=== PATIENT | male | born 1950 | race Caucasian/White ===

== ENCOUNTER 2018-05-17 08:14 | Day surgery (SDC) | payer MEDICARE ==
[~2018-05-17] VITALS: Ht 175.3 cm; Wt 106.1 kg
--- NOTE | 2018-05-17 08:48 | NUR ---
History, Chart, Medications and Allergies reviewed before start of procedure. Patient confirms NPO status and agrees with scheduled surgery. Lungs clear T/O to Auscultation. Pre-Op teaching done. Pt verbalizes understanding. Patient states colon prep results clear. Patient States Post-Procedure ride home has been arranged.
--- NOTE | 2018-05-17 09:40 | NUR ---
05/17/18 0940 America Johnson History, Chart, Medications and Allergies reviewed before start of procedure.PATIENT DETERMINED TO BE ASA APPROPRIATE FOR PROPOFOL SEDATION PRIOR TO START OF PROCEDURE BY .MONITOR INTACT WITH CONTINUOUS PULSE OXIMETRY AND INTERMITTENT BP.3-LEAD EKG REVIEWED WITH PHYSICIAN PRIOR TO START OF PROCEDURE.O2 VIA N/C INTACT THROUGHOUT SEDATION/PROCEDURE.
--- NOTE | 2018-05-17 10:05 | NUR ---
RECEIVED REPORT FROM ENDO RN (GEO). VSS. PT AROUSING. MD SPEAKING TO PT.
--- NOTE | 2018-05-17 10:25 | NUR ---
YANELY HARRISON WILL ASSUME CARE OF PT. Discharge instructions reviewed with patient. Patient verbalizes understanding. Copy given to patient to take home.
--- NOTE | 2018-05-17 10:33 | NUR ---
"DAY SURGERY RN | DISCHARGE Report from Valentina [place]. VSS. A/O. No issues in stepdown. Discharge instructions given by Valentina [place]. Patient is ride home. Patient taken via wheelchair to front entrance by volunteer."
== END 2018-05-17 22:37 | disposition home or self-care (01) ==
LOC: ORSCMMR 08:14
PROVIDERS: Internal Medicine Gastroenterology
PROC: 0DBN8ZX Excision of Sigmoid Colon, Via Natural or Artificial Opening Endoscopic, Diagnostic (ICD-10-PCS; principal; 2018-05-17 09:30)
PROC: 0DBH8ZX Excision of Cecum, Via Natural or Artificial Opening Endoscopic, Diagnostic (ICD-10-PCS; principal; 2018-05-17 09:30)
DX: Z12.11 Encounter for screening for malignant neoplasm of colon (principal); D12.0 Benign neoplasm of cecum; K63.5 Polyp of colon; Z86.010 Personal history of colon polyps; Z87.891 Personal history of nicotine dependence
CPT/HCPCS: 88305; J7120

== ENCOUNTER 2021-11-09 17:57 | Emergency (ER) | payer MEDICARE ==
[~2021-11-09] VITALS: Ht 175.3 cm; Wt 102.1 kg
[2021-11-09] MEDS ORDERED: CRUTCH4 XX (21:07)
[2021-11-09] MEDS ORDERED: CEPH500 PO (21:17)
== END 2021-11-09 21:20 | disposition home or self-care (01) ==
LOC: ER 17:57
DX: S91.332A Puncture wound without foreign body, left foot, initial encounter (principal); F17.200 Nicotine dependence, unspecified, uncomplicated; W26.8XXA Contact with other sharp object(s), not elsewhere classified, initial encounter
CPT/HCPCS: 73630; 90714; A9270